=== PATIENT | female | born 1950 ===

== ENCOUNTER 2022-04-08 06:23 | Day surgery (SDC) | payer OTHER ==
[~2022-04-08 06:23] MED LIST: AMLODIPINE-OLM1 EAC2; TOPROL XL100 M1
[2022-04-08] MEDS ORDERED: PERCOCET 5-3251 EACH PO (10:58)
== END 2022-04-08 14:40 | disposition home or self-care (01) ==
LOC: CIR.AMB 06:23
PROVIDERS: ATTEND Surgery
DX: D35.1 Benign neoplasm of parathyroid gland (principal); E21.0 Primary hyperparathyroidism; Z88.6 Allergy status to analgesic agent; I10 Essential (primary) hypertension; J45.909 Unspecified asthma, uncomplicated